=== PATIENT | female | born 1995 | race Caucasian/White ===

== ENCOUNTER 2016-12-23 11:35 | Emergency (ER) | payer BC, SELFPAY ==
[~2016-12-23] VITALS: Ht 160 cm; Wt 87.0 kg
[2016-12-23 11:35] VITALS: BP 137/74
[2016-12-23] MEDS ORDERED: TYLE325T5 PO (11:46)
[2016-12-23] MEDS ORDERED: IBUPROFEN 800 MG TAB PO ONE (14:15)
[2016-12-23] MEDS ORDERED: AMOXICILLIN 500 MG CAP PO ONE (14:15)
[2016-12-23] MEDS ORDERED: AMOX500C PO (14:19)
[2016-12-23] MEDS ORDERED: IBUP80TA PO (14:19)
== END 2016-12-23 14:25 | disposition home or self-care (01) ==
LOC: M ED 11:35
DX: K02.9 Dental caries, unspecified (principal); K01.1 Impacted teeth

== ENCOUNTER 2017-04-05 22:47 | Emergency (ER) | payer BC, OTHER ==
[~2017-04-05] VITALS: Ht 157.5 cm; Wt 89.5 kg
[~2017-04-05 22:47] MED LIST: AMOX500C PO; IBUP80TA PO; TYLE325T5 PO
[2017-04-06] MEDS ORDERED: AMOX875T PO (00:24)
[2017-04-06] MEDS ORDERED: NORCOTAB PO (00:24)
[2017-04-06] MEDS ORDERED: LIDOCAINE VISCOUS 2% SOLN 15ML UDC SSP ONE (00:30)
[2017-04-06] MEDS ORDERED: NORCO 5/325MG TABLET (BULK FOR ED) PO ONE (00:30)
[2017-04-06] MEDS ORDERED: AMOXICILLIN 500 MG CAP PO ONE (00:30)
[2017-04-06 00:37] VITALS: BP 117/75
== END 2017-04-06 00:39 | disposition home or self-care (01) ==
LOC: M ED 22:47
DX: K08.89 Other specified disorders of teeth and supporting structures (principal); Z91.018 Allergy to other foods; F17.210 Nicotine dependence, cigarettes, uncomplicated

== ENCOUNTER → 2019-08-05 | Outpatient (REF) | payer OTHER, MEDICAID ==
[~2019-08-05] MED LIST changes: +AMOX875T PO; +HYDR-3715 PO
[2019-08-05 15:58] LABS: BASO # 0.1 10^3/uL (0.0-0.2); EOS # 0.3 10^3/uL (0.0-0.5); EOS % 4.2 % (0.0-3.0); HEMATOCRIT 43.2 % (36.0-47.0); LYMPH # 2.2 10^3/uL (1.5-5.0); LYMPH % 37.3 % (24.0-44.0); MEAN CORPUSCULAR HEMOGLOBIN 31.4 pg (27.0-33.0); MEAN CORPUSCULAR HGB CONC 34.7 g/dl (32.0-36.5); MEAN CORPUSCULAR VOLUME 90.6 fl (80.0-96.0); MONO # 0.5 10^3/uL (0.0-0.8); MONO % 8.6 % (0.0-5.0); NEUTROPHILS # 2.9 10^3/uL (1.5-8.5); NEUTROPHILS % 48.7 % (36.0-66.0); PLATELET COUNT, AUTOMATED 309 10^3/uL (150-450); RED BLOOD COUNT 4.77 10^6/uL (4.00-5.40); WHITE BLOOD COUNT 5.9 10^3/uL (4.0-10.0)
[2019-08-05 16:12] LABS: ALBUMIN 3.4 GM/DL (3.2-5.2); ALT/SGPT 26 U/L (12-78); BILIRUBIN,TOTAL 0.3 MG/DL (0.2-1.0); BLOOD UREA NITROGEN 14 MG/DL (7-18); CALCIUM LEVEL 8.7 MG/DL (8.5-10.1); CARBON DIOXIDE LEVEL 27 MEQ/L (21-32); CHLORIDE LEVEL 107 MEQ/L (98-107); CHOLESTEROL LEVEL 235 MG/DL (<200); CREATININE FOR GFR 0.72 MG/DL (0.55-1.30); FREE T4 0.78 NG/DL (0.76-1.46); GLOMERULAR FILTRATION RATE > 60.0 (>60); GLUCOSE, FASTING 105 MG/DL (70-100); HDL CHOLESTEROL 47 MG/DL (>40); LDL CHOLESTEROL 160 MG/DL (<100); NON-HDL-C 188 MG/DL; POTASSIUM SERUM 4.5 MEQ/L (3.5-5.1); SODIUM LEVEL 139 MEQ/L (136-145); TOTAL PROTEIN 6.9 GM/DL (6.4-8.2); TRIGLYCERIDES LEVEL 139 MG/DL (<150)
[2019-08-05 16:14] LABS: TOTAL 25(OH) VITAMIN D 12.7 NG/ML (30.0-100.0)
[2019-08-05 16:25] LABS: HEMOGLOBIN A1c 5.7 %
== END ==
LOC: M LAB REF 15:27
PROVIDERS: ATTEND Nurse Practitioner Family
DX: Z00.01 Encounter for general adult medical examination with abnormal findings (principal); Z13.9 Encounter for screening, unspecified; M54.89 Other dorsalgia; K21.9 Gastro-esophageal reflux disease without esophagitis; Z68.36 Body mass index [BMI] 36.0-36.9, adult; E66.09 Other obesity due to excess calories

== ENCOUNTER → 2019-08-05 | Outpatient (REF) | payer OTHER, MEDICAID ==
[2019-08-05 15:55] LABS: APPEARANCE, URINE CLEAR (CLEAR); BACTERIA, URINE AUTO 1+ (NEGATIVE); BILIRUBIN, URINE AUTO NEGATIVE (NEGATIVE); BLOOD, URINE BLOOD 1+ (NEGATIVE); COLOR, URINE YELLOW (YELLOW); GLUCOSE, URINE (UA) AUTO NEGATIVE (NEGATIVE); KETONE, URINE AUTO NEGATIVE (NEGATIVE); LEUKOCYTE ESTERASE, URINE AUTO NEGATIVE (NEGATIVE); MUCUS, URINE SMALL (NEGATIVE); NITRITE, URINE AUTO NEGATIVE (NEGATIVE); PROTEIN, URINE AUTO NEGATIVE (NEGATIVE); RBC, URINE AUTO 1 /HPF (0-3); SPECIFIC GRAVITY URINE AUTO 1.014 (1.002-1.035); SQUAMOUS EPITHELIAL CELL UR AU 2 /HPF (0-6); UROBILINOGEN, URINE AUTO 0.2 mg/dL (0.0-2.0); WBC, URINE AUTO 1 /HPF (0-3)
== END ==
LOC: M LAB REF 15:26
PROVIDERS: ATTEND Nurse Practitioner Family
DX: Z13.9 Encounter for screening, unspecified (principal); M54.89 Other dorsalgia; K21.9 Gastro-esophageal reflux disease without esophagitis; E66.09 Other obesity due to excess calories

== ENCOUNTER → 2020-01-19 | Outpatient (REF) | payer OTHER, MEDICAID | LOC: M LAB REF 16:25 | PROVIDERS: ATTEND Nurse Practitioner Family | DX: Z12.4 Encounter for screening for malignant neoplasm of cervix (principal) ==

== ENCOUNTER → 2020-03-05 | Outpatient (REF) | payer OTHER, MEDICAID ==
[2020-03-05 18:15] LABS: BASO # 0.1 10^3/uL (0.0-0.2); BASO % 0.7 % (0.0-1.0); EOS # 0.3 10^3/uL (0.0-0.5); EOS % 3.2 % (0.0-3.0); HEMATOCRIT 44.6 % (36.0-47.0); HEMOGLOBIN 15.1 g/dl (12.0-15.5); LYMPH # 2.7 10^3/uL (1.5-5.0); MEAN CORPUSCULAR HEMOGLOBIN 30.9 pg (27.0-33.0); MEAN CORPUSCULAR HGB CONC 33.9 g/dl (32.0-36.5); MEAN CORPUSCULAR VOLUME 91.2 fl (80.0-96.0); MONO # 0.7 10^3/uL (0.0-0.8); MONO % 8.1 % (0.0-5.0); NEUTROPHILS # 4.3 10^3/uL (1.5-8.5); NEUTROPHILS % 53.8 % (36.0-66.0); PLATELET COUNT, AUTOMATED 312 10^3/uL (150-450); RED BLOOD COUNT 4.89 10^6/uL (4.00-5.40); WHITE BLOOD COUNT 8.1 10^3/uL (4.0-10.0)
[2020-03-05 18:33] LABS: HEMOGLOBIN A1c 5.2 %
[2020-03-05 18:40] LABS: ALBUMIN 3.9 GM/DL (3.2-5.2); ALT/SGPT 13 U/L (12-78); BILIRUBIN,TOTAL 0.4 MG/DL (0.2-1.0); BLOOD UREA NITROGEN 10 MG/DL (7-18); CALCIUM LEVEL 8.9 MG/DL (8.5-10.1); CARBON DIOXIDE LEVEL 26 MEQ/L (21-32); CHLORIDE LEVEL 107 MEQ/L (98-107); CHOLESTEROL LEVEL 224 MG/DL (<200); CHOLESTEROL RISK RATIO 4.765 (<5); CREATININE FOR GFR 0.81 MG/DL (0.55-1.30); FREE T4 0.97 NG/DL (0.76-1.46); GLOMERULAR FILTRATION RATE > 60.0 (>60); GLUCOSE, FASTING 100 MG/DL (70-100); HDL CHOLESTEROL 47 MG/DL (>40); LDL CHOLESTEROL 155 MG/DL (<100); NON-HDL-C 177 MG/DL; POTASSIUM SERUM 4.3 MEQ/L (3.5-5.1); SODIUM LEVEL 139 MEQ/L (136-145); TOTAL PROTEIN 7.1 GM/DL (6.4-8.2); TRIGLYCERIDES LEVEL 110 MG/DL (<150)
[2020-03-05 18:41] LABS: TOTAL 25(OH) VITAMIN D 19.2 NG/ML (30.0-100.0)
== END ==
LOC: M LAB REF 16:34
PROVIDERS: ATTEND Nurse Practitioner Family
DX: E02 Subclinical iodine-deficiency hypothyroidism (principal); E78.5 Hyperlipidemia, unspecified; R73.03 Prediabetes; E55.9 Vitamin D deficiency, unspecified; Z13.9 Encounter for screening, unspecified; M54.89 Other dorsalgia; K21.9 Gastro-esophageal reflux disease without esophagitis

== ENCOUNTER → 2020-05-31 | Outpatient (REF) | payer OTHER, MEDICAID ==
[2020-05-31 12:26] LABS: BASO % 0.4 % (0.0-1.0); EOS # 0.3 10^3/uL (0.0-0.5); EOS % 3.9 % (0.0-3.0); HEMATOCRIT 42.3 % (36.0-47.0); HEMOGLOBIN 14.6 g/dl (12.0-15.5); LYMPH # 2.4 10^3/uL (1.5-5.0); LYMPH % 34.3 % (24.0-44.0); MEAN CORPUSCULAR HEMOGLOBIN 30.7 pg (27.0-33.0); MEAN CORPUSCULAR HGB CONC 34.5 g/dl (32.0-36.5); MEAN CORPUSCULAR VOLUME 89.1 fl (80.0-96.0); MONO # 0.7 10^3/uL (0.0-0.8); MONO % 9.5 % (0.0-5.0); NEUTROPHILS # 3.6 10^3/uL (1.5-8.5); NEUTROPHILS % 51.6 % (36.0-66.0); PLATELET COUNT, AUTOMATED 301 10^3/uL (150-450); RED BLOOD COUNT 4.75 10^6/uL (4.00-5.40); WHITE BLOOD COUNT 6.9 10^3/uL (4.0-10.0)
[2020-05-31 12:49] LABS: HEMOGLOBIN A1c 5.3 %
[2020-05-31 12:59] LABS: ALBUMIN 3.8 GM/DL (3.2-5.2); ALT/SGPT 19 U/L (12-78); BILIRUBIN,TOTAL 0.6 MG/DL (0.2-1.0); BLOOD UREA NITROGEN 11 MG/DL (7-18); CALCIUM LEVEL 8.8 MG/DL (8.5-10.1); CARBON DIOXIDE LEVEL 25 MEQ/L (21-32); CHLORIDE LEVEL 107 MEQ/L (98-107); CHOLESTEROL LEVEL 201 MG/DL (<200); CHOLESTEROL RISK RATIO 4.674 (<5); CREATININE FOR GFR 0.75 MG/DL (0.55-1.30); FREE T4 0.93 NG/DL (0.76-1.46); GLOMERULAR FILTRATION RATE > 60.0 (>60); GLUCOSE, FASTING 115 MG/DL (70-100); HDL CHOLESTEROL 43 MG/DL (>40); LDL CHOLESTEROL 137 MG/DL (<100); NON-HDL-C 158 MG/DL; POTASSIUM SERUM 4.3 MEQ/L (3.5-5.1); SODIUM LEVEL 140 MEQ/L (136-145); TRIGLYCERIDES LEVEL 105 MG/DL (<150)
[2020-05-31 13:02] LABS: TOTAL 25(OH) VITAMIN D 15.9 NG/ML (30.0-100.0)
== END ==
LOC: M LAB REF 11:37
PROVIDERS: ATTEND Nurse Practitioner Family
DX: R73.03 Prediabetes (principal); E66.9 Obesity, unspecified; E55.9 Vitamin D deficiency, unspecified; E78.5 Hyperlipidemia, unspecified

== ENCOUNTER 2020-10-14 14:38 | Emergency (ER) | payer MEDICAID, OTHER ==
[~2020-10-14] VITALS: Ht 157.5 cm; Wt 101.3 kg
[2020-10-14 14:38] VITALS: BP 158/94
--- NOTE | 2020-10-14 16:56 | REP ---
INDICATION: injury COMPARISON: None. TECHNIQUE: AP, lateral, bilateral oblique and sunrise views. FINDINGS: The osseous structures and joint spaces are intact and normal. There is no evidence for acute fracture or dislocation. No joint effusion is appreciated. Surrounding soft tissues are unremarkable. No subcutaneous emphysema or radiodense foreign body. IMPRESSION: Normal examination. No acute fracture or dislocation. <Electronically signed by Hay Hill > 10/14/20 [id number]
[2020-10-14] MEDS ORDERED: LIDOCAINE 4% CREAM 5GM (LMX4) TOP ONE (18:00)
[2020-10-14] MEDS ORDERED: IBUPROFEN 600MG TAB PO ONE (18:00)
[2020-10-14] MEDS ORDERED: ANEC4CRE3 TOP (18:02)
== END 2020-10-14 18:26 | disposition home or self-care (01) ==
LOC: M ED 14:38
DX: S83.412A Sprain of medial collateral ligament of left knee, initial encounter (principal); X50.9XXA Other and unspecified overexertion or strenuous movements or postures, initial encounter; Y92.018 Other place in single-family (private) house as the place of occurrence of the external cause; Z91.018 Allergy to other foods

== ENCOUNTER → 2022-02-23 | Outpatient (CLI) | payer OTHER ==
[~2022-02-23] MED LIST changes: +ANEC4CRE3 TOP; +ISIB1TAB PO; +SERT25TA21 PO
== END ==
LOC: M LABSMTC 11:44
PROVIDERS: ATTEND Anesthesiology
DX: Z01.812 Encounter for preprocedural laboratory examination (principal); Z11.52 Encounter for screening for COVID-19

== ENCOUNTER 2022-02-25 11:26 | Day surgery (SDC) | payer OTHER ==
[~2022-02-25] VITALS: Ht 157.5 cm; Wt 94.3 kg
[~2022-02-25 11:26] MED LIST changes: +NS 1,000 ML IV ONE
[2022-02-25] MEDS ORDERED: fentaNYL 100 MCG/2 ML INJECTION As Ordered ONE (13:05)
[2022-02-25] MEDS ORDERED: propofoL 200 MG/20 ML VIAL As Ordered ONE ×2 (13:06→13:14)
[2022-02-25] MEDS ORDERED: LIDOCAINE 2% 100MG/5ML SDV (FOR ANES.) As Ordered ONE (13:06)
[2022-02-25 13:45] VITALS: BP 119/76
== END 2022-02-25 13:52 | disposition home or self-care (01) ==
LOC: M OPP 11:26
PROVIDERS: ATTEND Internal Medicine Gastroenterology
DX: R11.10 Vomiting, unspecified (principal); K21.9 Gastro-esophageal reflux disease without esophagitis; R68.81 Early satiety; Z87.891 Personal history of nicotine dependence; Z91.018 Allergy to other foods; Z79.899 Other long term (current) drug therapy; Z79.3 Long term (current) use of hormonal contraceptives; Z84.0 Family history of diseases of the skin and subcutaneous tissue; Z82.69 Family history of other diseases of the musculoskeletal system and connective tissue; F41.9 Anxiety disorder, unspecified; F32.9 Major depressive disorder, single episode, unspecified
CPT/HCPCS: 43235; J3010

== ENCOUNTER → 2022-04-30 | Outpatient (REF) | payer OTHER ==
[~2022-04-30] MED LIST changes: -NS 1,000 ML IV ONE
[2022-04-30 13:50] LABS: CHOLESTEROL RISK RATIO 4.07 (<5); HDL CHOLESTEROL 44.2 MG/DL (>40)
== END ==
LOC: M LAB REF 12:40
PROVIDERS: ATTEND Nurse Practitioner Family
DX: R79.89 Other specified abnormal findings of blood chemistry (principal)

== ENCOUNTER → 2022-06-04 | Outpatient (CLI) | payer OTHER | LOC: M RAD 11:58 | PROVIDERS: ATTEND Physician Assistant Medical | DX: K31.84 Gastroparesis (principal); R68.81 Early satiety; R11.2 Nausea with vomiting, unspecified; R10.13 Epigastric pain | CPT/HCPCS: 78264; A9541 ==

== ENCOUNTER → 2022-06-24 | Outpatient (CLI) | payer OTHER ==
[2022-06-24 10:52] LABS: HEMOGLOBIN A1c 5.2 % (4.0-6.0)
[2022-06-24 11:00] LABS: THYROID STIMULATING HORMONE 2.068 uIU/ML (0.55-4.78)
[2022-06-24 11:01] LABS: FREE T4 0.94 NG/DL (0.89-1.76)
== END ==
LOC: M LAB 09:15
PROVIDERS: ATTEND Physician Assistant Medical
DX: K31.84 Gastroparesis (principal)

== ENCOUNTER → 2022-08-27 | Outpatient (REF) | payer OTHER ==
[2022-08-27 14:21] LABS: CHOLESTEROL RISK RATIO 3.5 (<5); HDL CHOLESTEROL 51.7 MG/DL (>40); LDL CHOLESTEROL 111.5 MG/DL (<100); NON-HDL-C 129.3 MG/DL
== END ==
LOC: M LAB REF 12:26
PROVIDERS: ATTEND Nurse Practitioner Family
DX: E78.5 Hyperlipidemia, unspecified (principal); E66.9 Obesity, unspecified; R73.03 Prediabetes; E55.9 Vitamin D deficiency, unspecified

== ENCOUNTER 2022-10-02 10:28 | Emergency (ER) | payer OTHER ==
[~2022-10-02] VITALS: Ht 157.5 cm; Wt 90.7 kg
[2022-10-02 10:29] VITALS: BP 147/96; TEMP 98.8; O2SAT 96
[2022-10-02] MEDS ORDERED: AMPH1CAP16 (11:05)
[2022-10-02] MEDS ORDERED: SERT50TA29 (11:05)
[2022-10-02] MEDS ORDERED: BUSP5TA (11:05)
[2022-10-02 12:15] LABS: BASO % 0.5 % (0.0-1.0); EOS % 0.1 % (0.0-3.0); HEMATOCRIT 41.6 % (36.0-47.0); HEMOGLOBIN 14.5 g/dl (12.0-15.5); LYMPH # 1.9 10^3/uL (1.5-5.0); MEAN CORPUSCULAR HEMOGLOBIN 31.7 pg (27.0-33.0); MEAN CORPUSCULAR HGB CONC 34.9 g/dl (32.0-36.5); MONO # 0.6 10^3/uL (0.0-0.8); MONO % 6.4 % (2.0-8.0); NEUTROPHILS # 6.1 10^3/uL (1.5-8.5); NEUTROPHILS % 70.7 % (36.0-66.0); PLATELET COUNT, AUTOMATED 301 10^3/uL (150-450); RED BLOOD COUNT 4.57 10^6/uL (4.00-5.40); WHITE BLOOD COUNT 8.7 10^3/uL (4.0-10.0)
[2022-10-02 12:35] LABS: LIPASE 30 U/L (12-53)
[2022-10-02 12:37] LABS: ALBUMIN 3.8 G/DL (3.2-5.2); ALKALINE PHOSPHATASE 53 U/L (46-116); ALT/SGPT 24 U/L (7.0-40); AST/SGOT 15 U/L (<34); BILIRUBIN,DIRECT 0.2 MG/DL (<0.4); BILIRUBIN,TOTAL 0.9 MG/DL (0.3-1.2); BLOOD UREA NITROGEN 12 MG/DL (9-23); CALCIUM LEVEL 8.8 MG/DL (8.5-10.1); CARBON DIOXIDE LEVEL 27 MMOL/L (20-31); CHLORIDE LEVEL 104 MMOL/L (98-107); CREATININE FOR GFR 0.74 MG/DL (0.55-1.30); GLOMERULAR FILTRATION RATE > 60.0 (>60); GLUCOSE, FASTING 111 MG/DL (60-100); POTASSIUM SERUM 3.7 MMOL/L (3.5-5.1); SODIUM LEVEL 138 MMOL/L (136-145)
[2022-10-02 12:41] LABS: HCG, SERUM QUALITATIVE NEGATIVE (NEGATIVE)
[2022-10-02] MEDS ORDERED: ONDANSETRON 4MG 2ML VIAL IV ONE (13:35)
[2022-10-02] MEDS ORDERED: NS 1,000 ML IV ONE (13:35)
[2022-10-02] MEDS ORDERED: ISOVUE-370 76% 100ML VIAL As Ordered ONE (13:43)
[2022-10-02] MEDS ORDERED: ONDA4TAB6 PO (14:58)
== END 2022-10-02 15:27 | disposition home or self-care (01) ==
LOC: M ED 10:28
DX: R11.2 Nausea with vomiting, unspecified (principal); R19.7 Diarrhea, unspecified; F90.9 Attention-deficit hyperactivity disorder, unspecified type; F41.9 Anxiety disorder, unspecified; F32.A Depression, unspecified; Z87.891 Personal history of nicotine dependence; F12.90 Cannabis use, unspecified, uncomplicated; Z91.018 Allergy to other foods; Z79.3 Long term (current) use of hormonal contraceptives; Z79.899 Other long term (current) drug therapy
CPT/HCPCS: 74177; 80048; 80076; 83690; 84703; 85025; 96374; 99284; J2405; Q9967

== ENCOUNTER → 2023-02-27 | Outpatient (REF) | payer OTHER ==
[~2023-02-27] MED LIST changes: +AMPH1CAP16; +BUSP5TA; +ONDA4TAB6 PO; +SERT50TA29
[2023-02-27 12:50] LABS: BASO # 0.1 10^3/uL (0.0-0.2); BASO % 0.7 % (0.0-1.0); EOS # 0.2 10^3/uL (0.0-0.5); EOS % 2.2 % (0.0-3.0); HEMATOCRIT 41.2 % (36.0-47.0); HEMOGLOBIN 14.3 g/dl (12.0-15.5); LYMPH # 1.9 10^3/uL (1.5-5.0); LYMPH % 25.3 % (24.0-44.0); MEAN CORPUSCULAR HEMOGLOBIN 31.6 pg (27.0-33.0); MEAN CORPUSCULAR HGB CONC 34.7 g/dl (32.0-36.5); MEAN CORPUSCULAR VOLUME 90.9 fl (80.0-96.0); MONO # 0.5 10^3/uL (0.0-0.8); MONO % 7.1 % (2.0-8.0); NEUTROPHILS # 4.7 10^3/uL (1.5-8.5); NEUTROPHILS % 64.3 % (36.0-66.0); PLATELET COUNT, AUTOMATED 319 10^3/uL (150-450); RED BLOOD COUNT 4.53 10^6/uL (4.00-5.40); WHITE BLOOD COUNT 7.3 10^3/uL (4.0-10.0)
[2023-02-27 13:03] LABS: ALBUMIN 3.4 G/DL (3.2-5.2); ALKALINE PHOSPHATASE 51 U/L (46-116); ALT/SGPT 15 U/L (7.0-40); AST/SGOT 12 U/L (<34); BILIRUBIN,TOTAL 0.4 MG/DL (0.3-1.2); BLOOD UREA NITROGEN 10 MG/DL (9-23); CALCIUM LEVEL 8.5 MG/DL (8.5-10.1); CARBON DIOXIDE LEVEL 22 MMOL/L (20-31); CHLORIDE LEVEL 108 MMOL/L (98-107); CHOLESTEROL LEVEL 201 MG/DL (<200); CHOLESTEROL RISK RATIO 4.16 (<5); CREATININE FOR GFR 0.65 MG/DL (0.55-1.30); GLOMERULAR FILTRATION RATE > 60.0 (>60); GLUCOSE, FASTING 102 MG/DL (60-100); HDL CHOLESTEROL 48.3 MG/DL (>40); LDL CHOLESTEROL 132.7 MG/DL (<100); MAGNESIUM LEVEL 1.8 MG/DL (1.8-2.4); NON-HDL-C 152.7 MG/DL; POTASSIUM SERUM 4.4 MMOL/L (3.5-5.1); SODIUM LEVEL 139 MMOL/L (136-145); THYROID STIMULATING HORMONE 3.188 uIU/ML (0.55-4.78); TOTAL 25(OH) VITAMIN D 29.4 NG/ML (20.0-100.0); TOTAL PROTEIN 6.5 G/DL (5.7-8.2); TRIGLYCERIDES LEVEL 100 MG/DL (<150)
== END ==
LOC: M LAB REF 11:44
PROVIDERS: ATTEND Nurse Practitioner Family
DX: Z13.228 Encounter for screening for other metabolic disorders (principal)